=== PATIENT | female | born 1935 | race Caucasian/White ===

== ENCOUNTER 2024-03-07 15:36 | Emergency (ER) | payer OTHER, SELFPAY ==
[2024-03-07 15:38] VITALS: BP 163/93; BMI 29.2
[2024-03-07 16:55] VITALS: BP 138/68
--- NOTE | 2024-03-07 17:16 | ED.SKININJ ---
HPI-Injury
General
Chief Complaint: Head Injury
Source: patient
Exam Limitations: none
Time Seen by Provider: 03/07/24 16:15
Nursing documentation reviewed up to this point in time: agreed with
Travel History
Have you had any contact with someone who has COVID-19?: No
Do you have any symptoms of coronavirus? Fever > 100 degrees, chills, cough, shortness of breath, sore throat, loss of taste or smell, muscle aches, or headache?: No
History of Present Illness-Injury
Is this injury a work related problem?: No
Is pt an associate of [facility]?: No
Initial Injury comments:
Lost footing on patio step and fell. States she fell onto her buttocks and then backwards. Hit back of head on cement patio. No LOC. Hematoma to posterior scalp. 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 Brought to ED by friend for eval.
Past History
Past History
ED Past Medical History: HTN, Hypercholesterolemia and Hypothyroidism
ED Past Surgical History: Other (Eye surgery)
Review of Systems
Review of Systems
Allergies reviewed?: Yes
All Other Systems: ROS reviewed and negative except as documented in HPI and ROS
Constitutional: Reports no symptoms
EENT: Reports no symptoms
Respiratory: Reports no symptoms
Cardiac: Reports no symptoms
ABD/GI: Reports no symptoms
: Reports no symptoms
Musculoskeletal: Reports no symptoms
Skin: Reports other (hematoma to posterior scalp.)
Neurological: Reports no symptoms
Psychiatric: Reports no symptoms
Phy Exam
General Physical Exam
General Presentation: well appearing and no apparent distress
General age: appears stated age
General Skin: warm and dry
General Habitus: normal
General Mental: alert
General Hydration: appears well hydrated
Neurological Exam
Neurological Exam: alert, oriented x3, CN II-XII intact, no motor deficits, no sensory deficits and speech normal
Laureen Coma Scale
Eye Opening: Spontaneous
Verbal Response: Oriented
Motor Response: Obeys Commands
GCS Total Score: 15
Musculoskeletal Exam
Musculoskeletal Exam: full ROM, neuro vasc intact and other (Full nonpainful ROM to head/neck. No back pain, coccyx pain, upper or lower extremity pain)
Skin Exam
Skin Exam: normal color, warm/dry, no rash and other (hematoma to posterior scalp)
Psychiatric Exam
Psychiatric Exam: normal mood/affect
Course
Orders/Labs/Results
Orders:
Orders
03/07/24 15:[address] [CT Head W/o Iv Contrast] Urgent
Comment:
Reason For Exam: fall/head impact
Vital Signs
Initial and Last Documented VS:
Initial Vital Signs
Temp Pulse Resp BP Pulse Ox
98.4 F 92 16 163/93 98
03/07/24 15:38 03/07/24 15:38 03/07/24 15:38 03/07/24 15:38 03/07/24 15:38
Last Documented Vital Signs
Temp Pulse Resp BP Pulse Ox
98.4 F 86 17 138/68 95
03/07/24 15:38 03/07/24 16:55 03/07/24 16:55 03/07/24 16:55 03/07/24 16:55
*Radiology
Radiology exam reviewed: radiology read reviewed
*Pulse Oximetry
Patient hypoxic: no
*Critical Care Note
Total Time (30-74mins, 75-104mins- exclusive of procedures): Not Applicable
ED Attending Note
-
Portions of this chart may have been created with voice recognition software.� Occasional wrong word or��sound alike� substitutions may have occurred due to the inherent limitations of voice recognition software.
Discharge Plan
Departure
Patient Disposition: Home (Routine Discharge)
Date of Disposition: 03/07/24
Time of Disposition: 17:20
Patient with high blood pressure during this ER visit?: No
Condition: Good
Covid-19: Not Applicable
Discharge Problem:
Head injury
Instructions: Head Injury in Adults (DC), Contusion (DC)
Prescriptions:
No Action
diltiazem HCl 180 MG capsule,extended release 24 hr
180 mg PO DAILY
pravastatin 20 MG tablet
20 mg PO DAILY
hydrochlorothiazide 25 MG tablet
25 mg PO DAILY
levothyroxine 112 MCG tablet
112 mcg PO DAILY
Dry Eye Drops
1 drp BOTH EYES PRN PRN (Reason: dry eyes)
Referrals:
Neal Ramsey MD [Family Provider] - Follow up in 2-3 days
Interventions
Interventions:
*Risk Screen - Suicide Last Done: 03/07/24 15:38
*Neglect/Abuse Screening Last Done: 03/07/24 15:38
ED- Fall Risk Assessment Last Done: 03/07/24 15:38
*ED COVID-19 Vaccine History Last Done: 03/07/24 15:38
ED- Neurological Assessment Last Done: 03/07/24 16:55
ED-Skin Assessment Last Done: 03/07/24 16:55
Discharge Date and Time
Print Language: ICELANDIC
[2024-03-07] MEDS: TYLENOL 650 MG PO (17:33)
== END 2024-03-07 17:45 | disposition home or self-care (01) ==
LOC: EMR 15:36
PROVIDERS: EMERGENCY PHYSICIAN Emergency Medicine; FAMILY PHYSICIAN Family Medicine
DX: S09.90XA Unspecified injury of head, initial encounter (principal); W19.XXXA Unspecified fall, initial encounter; I10 Essential (primary) hypertension; E78.00 Pure hypercholesterolemia, unspecified; E03.9 Hypothyroidism, unspecified
CPT/HCPCS: 99284; 70450